=== PATIENT | male | born 1965 | race Caucasian/White ===

== ENCOUNTER 2021-04-11 11:18 | Emergency (ER) | payer OTHER ==
[~2021-04-11 11:18] MED LIST: FLOMAX0.4 MG PO; NORCO 5-325 TA1 EACH PO; ZOFRAN8 MG PO
[2021-04-11 13:02] LABS: BASOPHIL 0.8 % (0-2); BILIRUBIN NEGATIVE (NEGATIVE); BLOOD NEGATIVE Ery/uL (NEGATIVE); CLARITY CLEAR (CLEAR); COLOR YELLOW (YELLOW); EOSINOPHIL 1.1 % (0-5); GLUCOSE (U) 1+ mg/dL (NORMAL); HCT 41.4 % (42.0-52.0); HGB 14.4 g/dl (13.2-18.0); LEUKOCYTES NEGATIVE Leu/uL (NEGATIVE); LYMPHOCYTE 24.8 % (15-48); MCH 31.9 pg (25.0-31.0); MCHC 34.8 g/dL (32.0-36.0); MCV 91.8 fL (78.0-100.0); MONOCYTE 9.7 % (0-12); MPV 10.4 fL (6.0-9.5); NEUTROPHIL 63.3 % (41-80); NITRITE NEGATIVE (NEGATIVE); NRBC 0; PLT 267 K/uL (150-400); PROTEIN NEGATIVE (NEGATIVE); RBC 4.51 M/uL (4.70-6.00); RDW 12.1 % (11.5-14.0); SPECIFIC GRAVITY >=1.030 (1.001-1.030); UROBILINOGEN 0.2 mg/dL (0.2-1.0); WBC 6.3 K/uL (4.0-10.5)
[2021-04-11 13:29] LABS: CREATININE 0.7 mg/dL (0.67-1.17); POTASSIUM 3.7 mmol/L (3.5-5.1)
[2021-04-11] MEDS ORDERED: DICLOFENAC SODI75 MG PO (13:34)
== END 2021-04-11 14:07 | disposition home or self-care (01) ==
LOC: FER 11:18
PROVIDERS: Emergency Medicine
DX: R10.9 Unspecified abdominal pain (principal); Z87.442 Personal history of urinary calculi; Z96.0 Presence of urogenital implants
CPT/HCPCS: 36415; 80048; 81003; 85025; 99284

== ENCOUNTER 2022-03-31 20:02 | Emergency (ER) | payer SELFPAY ==
[~2022-03-31 20:02] MED LIST changes: +DICLOFENAC SODI75 MG PO
[2022-03-31 21:21] LABS: BASOPHIL 0.9 % (0-2); EOSINOPHIL 0.5 % (0-5); HCT 45.5 % (42.0-52.0); HGB 15.3 g/dl (13.2-18.0); LYMPHOCYTE 10.1 % (15-48); MCH 30.8 pg (25.0-31.0); MCHC 33.6 g/dL (32.0-36.0); MCV 91.5 fL (78.0-100.0); MONOCYTE 14.6 % (0-12); MPV 9.7 fL (6.0-9.5); NEUTROPHIL 73.6 % (41-80); NRBC 0; PLT 235 K/uL (150-400); RBC 4.97 M/uL (4.70-6.00); RDW 12.4 % (11.5-14.0); WBC 5.8 K/uL (4.0-10.5)
[2022-03-31 21:31] LABS: BILIRUBIN 1+ mg/dL (NEGATIVE); BLOOD NEGATIVE Ery/uL (NEGATIVE); GLUCOSE (U) 1+ mg/dL (NORMAL); LEUKOCYTES NEGATIVE Leu/uL (NEGATIVE); NITRITE POSITIVE (NEGATIVE); PROTEIN 2+ mg/dL (NEGATIVE); SPECIFIC GRAVITY 1.015 (1.001-1.030); UROBILINOGEN >=8.0 mg/dL (0.2-1.0)
[2022-03-31 21:33] LABS: COLOR ORANGE (YELLOW)
[2022-03-31 21:34] LABS: CLARITY CLEAR (CLEAR)
[2022-03-31 21:38] LABS: AMORPHOUS URATES CRYSTALS MODERATE; URINARY WBC RARE
[2022-03-31 21:51] LABS: ALBUMIN 4.4 g/dL (3.4-5.0); BILIRUBIN - TOTAL 0.4 mg/dL (0.2-1.0); GLOBULIN (CALCULATION) 3.3 g/dL; POTASSIUM 3.3 mmol/L (3.5-5.1); TOTAL PROTEIN 7.7 g/dL (6.4-8.2)
[2022-04-01] MEDS ORDERED: ONDANSETRON ODT4 MG PO (00:47)
[2022-04-01] MEDS ORDERED: BACTRIM DS TAB1 EAC1 PO (00:47)
== END 2022-04-01 01:25 | disposition home or self-care (01) ==
LOC: FER 20:02
PROVIDERS: Emergency Medicine
DX: R55 Syncope and collapse (principal); N20.0 Calculus of kidney; S00.01XA Abrasion of scalp, initial encounter; Z23 Encounter for immunization; W19.XXXA Unspecified fall, initial encounter; Y92.89 Other specified places as the place of occurrence of the external cause
CPT/HCPCS: 36415; 70450; 80053; 81001; 84484; 85025; 90471; 90715; 93005; J1885; J2405; J7030